=== PATIENT | female | born 1955 | race Caucasian/White ===

== ENCOUNTER 2022-01-24 11:43 | Emergency (ER) | payer MEDICARE, OTHER ==
[2022-01-24] MEDS ORDERED: Metoclopramide 10 MG/2 ML SDV IVPUSH ONE (15:15)
[2022-01-24] MEDS ORDERED: LORazepam 2 MG/ML SDV IVPUSH ONE (15:15)
[2022-01-24] MEDS ORDERED: Sodium Chloride 0.9% 10 ML Syringe FLUSH PRN (15:15)
[2022-01-24] MEDS ORDERED: Acetaminophen 325 MG Tab PO ONE (15:19)
[2022-01-24] MEDS ORDERED: Labetalol 100 MG/20 ML MDV IVPUSH ONE (15:22)
[2022-01-24] MEDS ORDERED: Labetalol 100 MG/20 ML MDV ONE (15:24)
[2022-01-24 15:31] LABS: CORONAVIRUS COVID-19 NAA NEGATIVE (NEGATIVE)
[2022-01-24 16:31] LABS: ESTIMATED GFR 99 mL/min (>60)
[2022-01-24] MEDS ORDERED: Lisinopril 10 MG Tab PO ONE (16:58)
[2022-01-24] MEDS ORDERED: methylPREDNISolone Sodium Succinate 40 MG/1 ML SDV IVPUSH ONE (18:38)
== END 2022-01-24 20:10 | disposition home or self-care (01) ==
LOC: JD.ED 11:43
DX: R42 Dizziness and giddiness (principal); E78.00 Pure hypercholesterolemia, unspecified; I10 Essential (primary) hypertension; Z88.5 Allergy status to narcotic agent; Z88.6 Allergy status to analgesic agent; Z88.2 Allergy status to sulfonamides; Z79.899 Other long term (current) drug therapy; Z20.822 Contact with and (suspected) exposure to COVID-19
CPT/HCPCS: 0241U; 36415; 70450; 80053; 83735; 84484; 85025; 86140; 93005; 96374; 96375; 99284; A9270; J2060; J2765; J2920; J3490